=== PATIENT | male | born 1940 ===

== ENCOUNTER 2020-03-11 10:54 | Inpatient (IN) | payer MEDICARE, BC ==
[2020-03-11] MEDS ORDERED: Fentanyl 100 MCG/2 ML VIAL ONE ×3 (11:40→19:23)
--- NOTE | 2020-03-11 11:57 | RAD ---
Exam:Right tibia fibula 2 views HISTORY: Fall. Pain. COMPARISON: None FINDINGS: No fracture, cortical irregularity or periosteal reaction in the visualized right tibia and proximal to mid fibula. Distal fibular fractures noted. IMPRESSION: Distal fibula fracture.
--- NOTE | 2020-03-11 11:58 | RAD ---
Exam:Right ankle 2 views HISTORY: Trauma. Fall. Pain. COMPARISON: None FINDINGS: Subluxation of the tibiotalar articulation. Medial malleolus fracture. Comminuted distal fi bula fracture. Associated deformity and soft tissue swelling. IMPRESSION: Fracture dislocation as described above.
[2020-03-11 12:39] LABS: #Eosinphils 0.2 thou/uL (0.0-0.7); #Lymphocytes 1.4 thou/uL (1.20-3.40); #Monocytes 0.8 thou/uL (0.11-0.59); #Neutrophils 9.2 thou/uL (1.40-6.50); %Basophils 0.2 % (0.0-1.0); %Eosinophils 1.7 % (0.0-10.0); %Lymphocytes 12.4 % (21.0-51.0); %Monocytes 6.8 % (0.0-10.0); %Neutrophils 78.8 % (42.0-75.0); Hemoglobin 14.6 g/dL (14.0-18.0); Mean Corpuscular HGB CONC 33.1 g/dL (32.0-36.0); Mean Corpuscular Hemoglobin 29.8 pg (27.0-31.0); Mean Corpuscular Volume 90.2 fL (78.0-98.0); Mean Platelet Volume 7.9 fL (7.4-10.4); Platelet Count 207 thou/uL (130-400); RBC Distribution Width 12.9 % (11.5-14.5); Red Blood Cell (RBC) Count 4.89 mill/uL (4.70-6.10); White Blood Cell (WBC) Count 11.6 thou/uL (4.8-10.8)
--- NOTE | 2020-03-11 12:43 | RAD ---
XR Tib Fib Rt Leg 2 View INDICATION: 79-year-old male status post reduction FINDINGS: Bones: Since the comparison examination there is been interval placement of a fiberglass splint. The mildly displaced lateral malleolus fracture is not appreciably changed in position. The known right medial malleolus fracture is not well seen. The ankle mortise is not well evaluated on the current ex am Joints: No acute abnormality. Soft tissues: No radiopaque foreign body is evident. IMPRESSION: Interval placement of a fiberglass splint involving the right lower extremity. Visualized mildly displaced lateral malleolus fracture is not appreciably changed in position. Recommend a dedicated radiograph of the right ankle.
[2020-03-11 12:45] LABS: Prothrombin Time 12.8 sec (12.0-14.7)
--- NOTE | 2020-03-11 12:45 | RAD ---
XR Ankle Rt 3 View STANDARD INDICATION: Post reduction COMPARISON: Prior ankle radiograph dated 03/03/2020 FINDINGS: Bones: There is improved alignment involving the displaced medial malleolus and lateral malleoli are ankle fractures. Ankle mortise: Since the comparison examination there is improved alignment involving the ankle morti se. There is mild residual posterior lateral subluxation of the talar dome in relationship to the tibial plafond. Talar Dome: Intact. Subtalar joint: Normal. Visualized hindfoot: Normal. Periarticular soft tissues: There is been interval placement of an overlying fiberglass splint. IMPRESSION: 1. Interval reduction of the right ankle fracture dislocation with improved alignment involving the m edial malleolus and lateral malleoli lower ankle fractures. There is mild residual posterior lateral subluxation of the talar dome in relationship to the tibial plafond.
[2020-03-11 12:46] LABS: PTT 31.8 sec (22.9-36.1)
--- NOTE | 2020-03-11 12:46 | RAD ---
Chest AP view INDICATION: Preop examination; history of fall COMPARISON: None FINDINGS: Lungs: The lungs are clear Cardiac silhouette: The cardiomediastinal silhouette appears within normal limits. Pulmonary vasculature: Normal Pleural spaces: No pleural effusion or pneumothorax is demonstrated. Upper abdomen: No abnormality seen. Osseous structures: No acute osseous abnormality. Additional findings: None. IMPRESSION: No acute cardiopulmonary abnormality.
[2020-03-11] MEDS ORDERED: CEFAZOLIN 2 GM in Premix Bag 1 BAG IVPB SCH (13:00)
[2020-03-11 13:01] LABS: ALT (SGPT) 31 U/L (8-55); AST (SGOT) 23 U/L (5-34); Albumin 4.2 g/dL (3.4-4.8); Alkaline Phosphatase 49 U/L (40-110); Anion Gap 13 mmol/L (10-20); BUN (Urea Nitrogen) 18 mg/dL (8.4-25.7); Bilirubin, Total 0.6 mg/dL (0.2-1.2); Calc. Creatinine Clearance 0 mL/min (70-130); Carbon Dioxide 22 mmol/L (23-31); Chloride 106 mmol/L (98-107); Estimated GFR-MDRD Greater than 90; Globulin 2.4 g/dL (2.4-3.5); Glucose 126 mg/dL (83-110); Potassium 4.3 mmol/L (3.5-5.1); Protein, Total 6.6 g/dL (5.8-8.1); Sodium 137 mmol/L (136-145)
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
[2020-03-11] MEDS ORDERED: PROPOFOL 200 MG/20 ML VIAL ONE (13:58)
[2020-03-11] MEDS ORDERED: Succinylcholine Chloride 20 MG/ML 10 ml SYRINGE FS ONE (13:58)
[2020-03-11] MEDS ORDERED: Lidocaine 1% PF 5 ML VIAL ONE (13:58)
[2020-03-11] MEDS ORDERED: Ondansetron PF 4 MG/2 ML Vial ONE (13:58)
[2020-03-11] MEDS ORDERED: EPHEDRINE 25 MG/5 ML SYRINGE ONE (13:58)
--- NOTE | 2020-03-11 16:11 | HP ---
REQUESTING PHYSICIAN: Dr. Bruce Browne. ATTENDING SURGEON: Dr. Corona. CONSULTATIONS: Orthopedics, Dr. Jackson. HISTORY OF PRESENT ILLNESS: The patient is an 79-year-old man, who was walking down flight of stairs when he missed one of the middle stairs and rolled his right ankle and fell. He denied loss of consciousness or hitting his head. His chief complaint was right ankle pain. He was brought by EMS to the emergency department, where he underwent evaluation and examination, was noted to have a right bimalleolar fracture dislocation of his distal tibia and fibula. While in the emergency department, the patient underwent conscious sedation and had closed reduction and splinting done of his ankle, at which time we were asked to evaluate the patient for admission and obtain Orthopedic consultation. ALLERGIES: NONE. CURRENT MEDICATIONS: The patient reports he takes high blood pressure medicine and medication to help with his urinary function. PAST MEDICAL HISTORY: Hypertension, type 2 diabetes, BPH. PAST SURGICAL HISTORY: Hernia repair, tonsillectomy, appendectomy, and knee scope, the patient does not recall which side. SOCIAL HISTORY: The patient lives at home with his spouse in [place]. He drinks rarely. Smoked approximately three packs of cigarettes for many years and quit greater than 10 years ago. REVIEW OF SYSTEMS: A 10-point review of systems is negative as otherwise stated. PHYSICAL EXAMINATION: VITAL SIGNS: Blood pressure 135/77, heart rate 63, respirations 18, oxygen saturation is 100% on 2 L via nasal cannula, temperature is 98.4. GENERAL: The patient is resting comfortably in bed. He is awake, conversant, appropriate. His Lizette Coma Scale is 15 HEENT: Head is normocephalic, atraumatic. Eyes, extraocular motion intact. PERRLA bilaterally. Ears are atraumatic without discharge. Nose is atraumatic without discharge. Oropharynx is clear. NECK: Nontender. Trachea is midline with no JVD. CHEST: Clear to auscultation with good inspiratory and expiratory effort. HEART: Regular rate and rhythm. ABDOMEN: Soft, flat, nontender with active bowel sounds. Pelvis is stable. EXTREMITIES: Neurovascularly intact x4. Right lower extremity is immobilized in an L and U splint. He has good capillary refill in the extremity and the skin is warm and dry. BACK: By report is atraumatic and nontender. LABORATORY FINDINGS: White blood cell count 11.6, hemoglobin 14.6, hematocrit 44.2, platelets 207. Sodium 137, potassium 4.3, chloride 106, CO2 of 22, BUN 18, creatinine 0.81, glucose 126. LFTs are unremarkable. PT 13, INR 1.0, PTT 32. RADIOGRAPHIC REPORTS: AP chest x-ray shows no acute cardiopulmonary abnormality. Views of the tibia and fibula along with radiographs of the right ankle show a fracture dislocation of the tibiotalar articulation with bimalleolar fractures. The patient also underwent closed reduction. Postreduction films show marked improvement of fracture fragments and the joint. ASSESSMENT AND PLAN: 1. Status post fall downstairs. 2. Right ankle fracture dislocation, subsequent closed reduction and splinting in the emergency department. 3. Acute pain secondary to above. 4. History of hypertension. 5. History of BPH and type 2 diabetes. PLAN: Plan will be to continue the patient n.p.o. He has been n.p.o. since this morning. When enquiring about blood thinners, the patient reports that he only takes an aspirin a day. The patient will be able to undergo surgical intervention today. Postoperatively, we will begin pain control, pulmonary toilet, gastritis and mechanical VTE prophylaxis, and begin working with Physical and Occupational Therapy. We will also discuss placement at that time. The evaluation, examination, laboratory, and radiographic findings were discussed with Dr. Corona prior to this dictation. The patient was evaluated in the emergency department by Orthopedics. Job ID: [id number]
[2020-03-11] MEDS ORDERED: Lidocaine 2% Jelly 5 ML TUBE ONE (16:29)
[2020-03-11] MEDS ORDERED: Sodium Chloride 0.9% 0 ML ONE (16:36)
[2020-03-11] MEDS ORDERED: Bupivacaine PF 0.5% 30 ML VIAL ONE (16:36)
--- NOTE | 2020-03-11 18:41 | RAD ---
4 intraoperative views of the right ankle: 03/11/2020 COMPARISON: 03/11/2020 HISTORY: Fracture status post ORIF FINDINGS: 2 screws traverse the previously noted medial malleolus fracture. Lateral screw and plate f ixation is seen involving the distal fibula. IMPRESSION: ORIF as above.
[2020-03-11] MEDS ORDERED: Promethazine HCl 25 MG/ML VIAL SLOW IVP PRN (18:56)
[2020-03-11] MEDS ORDERED: Promethazine HCl 25 MG/ML VIAL IM PRN (18:56)
[2020-03-11] MEDS ORDERED: Ondansetron HCl/PF 4 MG/2 ML Vial IVP PRN (18:56)
[2020-03-11] MEDS ORDERED: traMADol HCl 50 MG TAB PO PRN (20:53)
[2020-03-11] MEDS ORDERED: Dextrose 5% in Water 1,000 ML IV PRN (20:53)
[2020-03-11] MEDS ORDERED: hydrALAZINE 20 MG/ML VIAL SLOW IVP PRN (20:53)
[2020-03-11] MEDS ORDERED: Dextrose 50% Abboject 50 ML SYRINGE SLOW IVP PRN (20:53)
[2020-03-11] MEDS ORDERED: Ondansetron ODT 4 MG TAB PO PRN (20:53)
[2020-03-11] MEDS ORDERED: Morphine 2 MG/ML SYRINGE SLOW IVP PRN (20:53)
[2020-03-11] MEDS ORDERED: Ondansetron PF 4 MG/2 ML Vial IVP PRN (20:53)
[2020-03-11] MEDS ORDERED: Sodium Chloride 0.9% 1,000 ML IV SCH (20:53)
[2020-03-11] MEDS ORDERED: Morphine 4 MG/ML VIAL SLOW IVP PRN (20:53)
[2020-03-11] MEDS: Acetaminophen 500 MG TAB PO SCH (21:02)
[2020-03-11] MEDS: Senokot S 8.6-50 MG TAB PO SCH (21:02)
[2020-03-11] MEDS: Famotidine 20 MG TAB PO SCH (21:02)
[2020-03-11] MEDS: Gabapentin 300 MG CAP PO SCH (21:02)
[2020-03-11] MEDS: CEFAZOLIN 2 GM in Premix Bag 1 BAG IVPB SCH (21:03)
[2020-03-11 21:45] VITALS: BMI 32.8
--- NOTE | 2020-03-12 01:03 | OP ---
DATE OF PROCEDURE: 03/11/2020 PREOPERATIVE DIAGNOSIS: Right bimalleolar ankle fracture dislocation. POSTOPERATIVE DIAGNOSIS: Right bimalleolar ankle fracture dislocation. PROCEDURE: Open reduction internal fixation of right bimalleolar ankle. ANESTHESIA: General. SEPTIC CLEANER: Galen Atwood PA-C IMPLANT: Synthes 2.7 mm variable angle LCP distal fibular plate. COMPLICATIONS: None. DRAINS: None. SPECIMEN: None. TOURNIQUET TIME: 74 minutes at 300 mmHg. OUTCOME: Satisfactory. INDICATIONS FOR PROCEDURE: Patient is an 79-year-old gentleman, status post ground level fall sustaining a bimalleolar ankle fracture. After discussion with the patient including risks and benefits, we decided to proceed with open reduction internal fixation of this ankle. Informed consent has been obtained. I believe all questions have been answered. DESCRIPTION OF PROCEDURE: The patient was brought to the operating room and a time-out performed followed by induction of general anesthesia. Next, the patient was positioned supine on the OR table and a sterile prep and drape was performed of the right lower extremity. Next, the limb was exsanguinated with Esmarch bandage, tourniquet inflated to 300 mmHg. A lateral incision was made over the lateral malleolus. After the skin was sharply incised, dissection was carried down bluntly exposing the fracture. Minimal subperiosteal dissection was performed to expose the fracture edges. There were three predominant fragments consisted of a very distal fibular piece, a large posterior butterfly fragment as well as the main shaft of the fibula. Using bone tenaculum, the three fragments were reduced to a near anatomic level and held in place while C-arm imaging was obtained. Once confirmed that acceptable alignment had been achieved, two interfragmentary compression screws were applied to hold three fragments to near anatomic alignment. Next, a locking variable angle plate was applied to the lateral cortex of the distal fibula to neutralize the fracture. A combination of locking screws in the metaphyseal screw was used distally in addition to 2.7 mm cortical screws proximally. At the completion of this, AP, lateral, and mortise views of the ankle were obtained that showed hinduism of more normal-appearing ankle. A second incision was then made medially overlying the medial malleolus. After the skin was sharply incised, dissection was carried down bluntly exposing the fracture. The fracture was reduced under direct visualization and held in place with a bone tenaculum. Once reduced, mm cancellous screws were passed from the tip of the medial malleolus across the fracture and into the distal tibial metaphysis. The clamp was then removed and final AP, lateral, and mortise x-rays were obtained of this ankle. The x-ray showed anatomic alignment. The two incisions were then irrigated with bulb syringe, closed in layers with 0 Vicryl deep followed by 2-0 Vicryl and carlotta for the skin. Xeroform gauze, Webril, and a posterior and stirrup fiberglass splint was applied to the ankle and then the tourniquet was let down. Patient was transferred to recovery room in stable condition. There were no complications. Patient tolerated the procedure well. Job ID: [id number]
[2020-03-12] MEDS: Acetaminophen 500 MG TAB PO SCH ×2 (02:40→09:29)
[2020-03-12 05:24] LABS: #Eosinphils 0.2 thou/uL (0.0-0.7); #Lymphocytes 1.4 thou/uL (1.20-3.40); #Neutrophils 6.4 thou/uL (1.40-6.50); %Basophils 0.4 % (0.0-1.0); %Eosinophils 2.2 % (0.0-10.0); %Lymphocytes 15.3 % (21.0-51.0); %Monocytes 11.1 % (0.0-10.0); %Neutrophils 71.1 % (42.0-75.0); Hemoglobin 13.2 g/dL (14.0-18.0); Mean Corpuscular HGB CONC 32.3 g/dL (32.0-36.0); Mean Corpuscular Hemoglobin 29.7 pg (27.0-31.0); Mean Corpuscular Volume 91.8 fL (78.0-98.0); Mean Platelet Volume 7.9 fL (7.4-10.4); Platelet Count 197 thou/uL (130-400); RBC Distribution Width 12.8 % (11.5-14.5); Red Blood Cell (RBC) Count 4.44 mill/uL (4.70-6.10)
[2020-03-12] MEDS: traMADol HCl 50 MG TAB PO PRN ×3 (05:30→18:39)
[2020-03-12] MEDS: CEFAZOLIN 2 GM in Premix Bag 1 BAG IVPB SCH ×2 (05:31→15:20)
[2020-03-12 05:41] LABS: Phosphorus 3.7 mg/dL (2.3-4.7)
[2020-03-12 05:44] LABS: Anion Gap 10 mmol/L (10-20); BUN (Urea Nitrogen) 15 mg/dL (8.4-25.7); Calc. Creatinine Clearance 102 mL/min (70-130); Carbon Dioxide 25 mmol/L (23-31); Chloride 107 mmol/L (98-107); Estimated GFR-MDRD 90; Glucose 115 mg/dL (83-110); Sodium 138 mmol/L (136-145)
--- NOTE | 2020-03-12 06:41 | PDOC.BPN ---
- Brief Progress Note DATE OF SERVICE: 03/11/2020 SUBJECTIVE: Mr. Williamson remained encouraged in surgical floor, patient just came back from PACU . The patient was seen on round this evening. The patient reports pain is well controlled. he not yet working with Physical Therapy, Occupational Therapy. he developed no fever or shortness of breath. OBJECTIVE: GENERAL: Currently, the patient is lying in bed, with no acute respiratory distress VITAL SIGNS: stable LUNGS: Clear bilaterally. HEART: Regular rate and rhythm. ABDOMEN: Soft, nondistended. EXTREMITIES: Neurovascularly intact x4. Postop dressing clean, dry, intact. ASSESSMENT: 1. Status post ground level fall. 2. Right ankle fracture, status post repair. PLAN: Continue supportive care. Continue pain control. Continue working with Physical Therapy and Occupational Therapy, and placement is pending.
[2020-03-12] MEDS ORDERED: Chloraseptic Spray 180 ml Bottle PO PRN (06:49)
[2020-03-12] MEDS: Senokot S 8.6-50 MG TAB PO SCH ×2 (09:29→21:00)
[2020-03-12] MEDS: Enoxaparin Sodium 40 MG/0.4 ML SYRINGE SC SCH (09:29)
[2020-03-12] MEDS: Polyethylene Glycol 3350 17 GM Packet PO SCH (09:29)
[2020-03-12] MEDS: Famotidine 20 MG TAB PO SCH ×2 (09:29→21:00)
[2020-03-12] MEDS: Gabapentin 300 MG CAP PO SCH ×2 (09:29→21:00)
[2020-03-12] MEDS ORDERED: Cyclobenzaprine 10 MG TAB PO PRN (11:53)
[2020-03-12] MEDS: Acetaminophen 325 MG TAB PO SCH ×3 (12:34→23:11)
--- NOTE | 2020-03-12 14:27 | EKG ---
Test Reason : Blood Pressure : / mmHG Vent. Rate : 061 BPM Atrial Rate : 061 BPM P-R Int : 166 ms QRS Dur : 082 ms QT Int : 434 ms P-R-T Axes : 052 049 062 degrees QTc Int : 436 ms Normal sinus rhythm Normal ECG Confirmed by SUHA MENDEZ ([id number]), editor map EMILEE WILLIS ([id number]) on 03/12/2020 2:27:45 PM Referred By: Confirmed By:SUHA Steiner
--- NOTE | 2020-03-12 19:03 | PRG ---
DATE OF SERVICE: 03/12/2020 SUBJECTIVE: The patient is hospital day #2, postop day #1, status post ground level fall on some stairs, in which he sustained a right ankle fracture dislocation. Yesterday, he underwent open reduction and internal fixation of right bimalleolar ankle fracture dislocation. He tolerated that procedure well. This morning, he reports that his pain is controlled. His only concern is taking his blood pressure medicine. He is tolerating a diet and he has not yet started working with physical therapy. PHYSICAL EXAMINATION: VITAL SIGNS: Temperature is 99.9, heart rate 93, blood pressure 109/66, respirations 14, oxygen saturation 97% on room air. GENERAL: The patient is resting comfortably in bed. He is awake, alert, oriented, reports his pain is controlled and he is tolerating a diet. HEENT: Unremarkable. LUNGS: Clear to auscultation bilaterally. HEART: Regular rate and rhythm. ABDOMEN: Soft, nondistended, nontender with active bowel sounds. EXTREMITIES: Neurovascularly intact x4. Postop splint and dressing are clean, dry, and intact. LABORATORY FINDINGS: White blood cell count 9.0, hemoglobin 13.2, hematocrit 40.8, platelets 197. Sodium 138, potassium 4.0, chloride 107, CO2 of 25, BUN 15, creatinine 0.82, glucose 115, magnesium 2.0, phosphorus 3.7. There are no radiographs reviewed this morning. ASSESSMENT: 1. Status post fall downstairs. 2. Status post open reduction and internal fixation of right ankle fracture dislocation, bimalleolar fracture. 3. Acute pain secondary to above, improved. 4. History of hypertension, benign prostatic hyperplasia, and type 2 diabetes. PLAN: Plan will be to continue supportive care. Encourage physical and occupational therapy. Encourage incentive spirometry use and await evaluation for placement. The patient was seen this morning during rounds with Dr. Corona. Job ID: [id number]
[2020-03-12] MEDS: Acetaminophen/Codeine 30-300mg Tablet PO PRN (21:03)
[2020-03-13] MEDS: Acetaminophen 325 MG TAB PO SCH ×2 (05:16→11:34)
[2020-03-13] MEDS: Acetaminophen/Codeine 30-300mg Tablet PO PRN ×2 (08:47→12:49)
[2020-03-13] MEDS: Famotidine 20 MG TAB PO SCH (08:47)
[2020-03-13] MEDS: Polyethylene Glycol 3350 17 GM Packet PO SCH (08:47)
[2020-03-13] MEDS: Senokot S 8.6-50 MG TAB PO SCH (08:47)
[2020-03-13] MEDS: Enoxaparin Sodium 40 MG/0.4 ML SYRINGE SC SCH (08:47)
[2020-03-13] MEDS: Gabapentin 300 MG CAP PO SCH (08:47)
[2020-03-13] MEDS ORDERED: Tamsulosin HCl 0.4 MG CAP PO SCH (09:00)
[2020-03-13 11:17] VITALS: TEMP 97.2
[2020-03-13 12:06] VITALS: BP 120/74
== END 2020-03-13 13:12 | DRG 494 ==
LOC: ERS 10:54 → SURG B 13:57
PROVIDERS: ADMIT Surgery; ATTEND Surgery
PROC: 0QSJ04Z Reposition Right Fibula with Internal Fixation Device, Open Approach (ICD-10-PCS; principal; 2020-03-11)
DX: S82.841A Displaced bimalleolar fracture of right lower leg, initial encounter for closed fracture (principal); W10.9XXA Fall (on) (from) unspecified stairs and steps, initial encounter; Y92.009 Unspecified place in unspecified non-institutional (private) residence as the place of occurrence of the external cause; I10 Essential (primary) hypertension; E11.9 Type 2 diabetes mellitus without complications; N40.0 Benign prostatic hyperplasia without lower urinary tract symptoms; Z90.49 Acquired absence of other specified parts of digestive tract; Z79.899 Other long term (current) drug therapy
CPT/HCPCS: 27840; 36415; 71045; 76000; 80048; 80053; 82533; 83735; 84100; 85025; 85610; 85730; 86850; 86900; 86901; 93005; 94760; 96374; 99152; C1713; G0390; J0690; J1650; J2001; J2270; J2405; J2704; J3010; J3370; S0020